=== PATIENT | male | born 1970 | race Caucasian/White ===

== ENCOUNTER → 2020-07-25 | Outpatient (CLI) | payer BC ==
--- NOTE | 2020-07-25 16:00 | RAD ---
KNEE LEFT 3V DATE: 07/25/2020 12:00 AM INDICATION: LT KNEE PAIN SINCE 04/2020 COMPARISON: None. FINDINGS: Bones: There is no evidence of acute fracture or dislocation. Joints: The joint spaces are normal. There is no joint effusion. Miscellaneous: None. IMPRESSION: Normal exam Electronically signed by: Ej Hedrick MD (07/25/2020 3:57 PM) [id number]
== END | disposition home or self-care (01) ==
LOC: LAB 15:02
PROVIDERS: ATTEND Physician Assistant
DX: M25.562 Pain in left knee (principal)
CPT/HCPCS: 73562